=== PATIENT | female | born 2000 | race Caucasian/White ===

== ENCOUNTER 2024-09-17 10:54 | Emergency (ER) | payer OTHER, SELFPAY ==
[2024-09-17 11:12] VITALS: BP 115/68; PULSE 82; RESP 18; TEMP 36.9; O2SAT 100; BMI 26.2
--- NOTE | 2024-09-17 11:18 | ED_ITS ---
HPI - Back Pain/Injury General Chief Complaint: Back Pain/Injury Stated Complaint: Back pain 2 days Time Seen by Provider: 09/17/24 11:17 Source: patient Mode of arrival: ambulatory Limitations: no limitations History of Present Illness ED Provider: BRANDI JASMINE Narrative: 24 yo female with PMH of kidney infection who notes left low back pain that comes and goes then releases since Monday no trauma, no dysuria, had a temp of 98.8 and felt a little nauseated yesterday. The pain does get worse with touching the back. She has no dysuria, no vomiting, no diarrhea. No numbness, weakness, incontinence reported MD elicited complaint: back pain Onset (ago): day(s) (3) Timing: intermittent Severity: moderate Similar Symptoms Previously: No Quality: spasming Location: lumbar spine Radiation: none Exacerbating factors: none Relieving factors: none Associated symptoms: denies other symptoms Related Data Previous Rx's ?Medication ?Instructions ?Recorded cyclobenzaprine 10 mg tablet 10 mg PO TID PRN muscle spasm #20 09/17/24 tabs lidocaine 5 % topical patch 1 patch topical DAILY #30 ea 09/17/24 Allergies Allergy/AdvReac Type Severity Reaction Status Date / Time No Known Allergies Allergy Verified 09/17/24 11:14 Review of Systems 2 Review of Systems: Constitutional : No Weight loss, No Fever, No Chills, ENT/Mouth : No Hearing loss, No Ear Pain, No Nasal Congestion, No Sinus Pain, No Hoarseness, No sore throat, No Rhinorrhea, No Swallowing Difficulty Cardiovascular : No Chest Pain, No SOB Respiratory : No Cough, No Dyspnea Gastrointestinal : No Nausea, No Vomiting, No Diarrhea, No abdominal Pain, No Hematochezia, No Melena Genitourinary : No Dysuria, No Urinary Frequency, No Hematuria, No Urinary Incontinence, Musculoskeletal : positive back pain Skin : No Skin Lesions, No rash Neuro : No Weakness, No Numbness, No Paresthesias, no loss of bowel or bladder incontinence, no saddle anesthesia all other systems reviewed and are negative [facility] Past Medical History Attestation statement: The following information was validated with the patient. Source: old records reviewed Medical History Kidney infection Social History Social History Smoked in Last 30 Days: No Use of substances other than those prescribed or required for medical reasons: No Advance Directives: No Advance Directives Information Provided: Yes Do you have a plan to hurt others: No Plan Patient : No Physical Exam 2 Vital Signs: Vital Signs: Last Vital Signs Temp 98.2 F 09/17/24 17:03 Pulse 87 09/17/24 17:03 Resp 18 09/17/24 17:03 BP 123/71 09/17/24 17:03 Pulse Ox 100 09/17/24 17:03 O2 Del Method Room Air 09/17/24 17:03 BMI result Body Mass Index 26.2 Appearance: Alert. Oriented X3. No acute distress. Eyes: Pupils equal, round and reactive to light. ENT: Pharynx normal. Neck: Normal inspection. Neck supple. CVS: Normal heart rate and rhythm. Pulses normal. Respiratory: No respiratory distress. Breath sounds normal. Abdomen: Soft and nontender. Back: ttp along PSIS area no CVA ttp Skin: Skin warm and dry. Normal skin color. Normal skin turgor. Extremities: No lower extremity edema. No calf ttp Neuro: Oriented X 3. No motor deficit. No sensory deficit. Course Course Course Narrative: This is a rapid medical exam performed by Lina Shepherd PA-C. 24-year-old female with a history of pyelonephritis presents with left flank pain x 2 days. Associated fever and nausea. She is overall well in appearance, without CVA tenderness, I am not inclined to obtain a CT scan at this time. We will be obtaining screening labs urinalysis and urine . The patient is hemodynamically stable and is able to return to the weight room pending results. Medical Decision Making Medical Decision Making MDM Narrative: 24 yo female hx of kidney infection now reports left lower PSIS pain no or GI symptoms did have mild nausea yesterday. I can touch the low back and she has pain. She has no neuro symptoms at this time basic labs, UA is likely contaminated culture ordered. PO pain control, after discussion patient does not want to wait for US of kidneys and I agree Differential Diagnosis Differential Diagnoses: The differential diagnosis associated with the presentation includes back strain, low susp renal colic Lab Data [facility] Lab Attestation statement: I reviewed the patient's lab results. 09/17/24 11:31 09/17/24 11:31 Labs: Lab Results 09/17/24 09/17/24 Range/Units 11:31 16:41 WBC 6.8 (4.8-10.8) X10*3/uL RBC 5.17 (4.20-5.50) X10*6/uL Hgb 13.9 (12.0-16.0) g/dl Hct 42.7 (37.0-47.0) % MCV 82.6 (80.0-98.0) fL MCH 26.9 L (27.0-33.0) pg MCHC 32.6 (31.0-35.0) g/dl RDW 13.3 (11.0-16.0) % Plt Count 212 (160-400) X10*3/uL MPV 8.7 L (9.4-12.3) fL Immature Gran % (Auto) 0.3 (0.0-0.4) % Neut % (Auto) 59.0 (45-73) % Lymph % (Auto) 32.9 (20-40) % [place] % (Auto) 5.8 (2-11) % Eos % (Auto) 1.6 (0-4) % Baso % (Auto) 0.4 (0-2) % Lymph # (Auto) 2.2 (1.2-4.9) X10*3/uL [place] # (Auto) 0.4 (0.1-1.2) X10*3/uL Eos # (Auto) 0.1 (0.0-0.4) X10*3/uL Baso # (Auto) 0.0 (0.0-0.2) X10*3/uL Abs Immat Gran (auto) 0.02 (0.00-0.03) X10*3/uL Absolute Neuts (auto) 4.0 (2.0-8.3) x10*3/uL Absolute Nucleated RBC 0.000 (0.0-0.012) X10*3/uL Nucleated RBC % (auto) 0.0 (0.0-0.2) /100WBC Sodium 141 (135-145) mmol/L Potassium 4.9 (3.3-5.1) mmol/L Chloride 108 (96-108) mmol/L Carbon Dioxide 27 (22-29) mmol/L Anion Gap 11 L (12-20) BUN 14 (9-16) mg/dL Creatinine 0.87 (0.5-1.4) mg/dL Estim Creat Clear Calc 88.9 Estimated GFR > 60 Random Glucose 117 H (60-115) mg/dL Calcium 9.8 (8.4-10.2) mg/dL Magnesium 2.2 (1.6-2.6) mg/dL Total Bilirubin 0.4 (0.0-1.0) mg/dL AST 19 (5-31) U/L ALT 16 (0-31) U/L Alkaline Phosphatase 60 (39-117) U/L Total Protein 8.0 (6.5-8.0) g/dL Albumin 4.6 (3.5-5.0) g/dL Beta HCG, Quant < 2 mIU/mL Urine Color Yellow Urine Appearance Clear Urine pH 6.0 (5.0-9.0) Ur Specific [place] <= 1.005 (1.005-1.025) Urine Protein Negative (Neg-Trace) mg/dL Urine Glucose (UA) Negative (Negative) mg/dL Urine Ketones 15 (Negative) mg/dL Urine Blood Negative (Negative) Urine Nitrite Negative (Negative) Ur Leukocyte Esterase Trace H (Negative) Urine RBC 0-2 (0-2) /HPF Urine WBC 6-10 H (0-5) /HPF Ur Squamous Epith Cells 3-5 (0-2) /HPF Urine Bacteria None Seen (None Seen) Hyaline Casts 0-2 (0-2) /LPF External Record Review External record reviewed: Outpatient record Prescription Management I considered prescription management with: Pain Medication and Other Discharge Plan Discharge Clinical Impression: Acute lumbar back pain Qualifiers: Back pain laterality: left Sciatica presence: without sciatica Qualified Code(s): M54.50 - Low back pain, unspecified Patient Disposition: Home, Self-Care Instructions: Acute Low Back Pain (ED) Additional Instructions: return for any worsening pain to get Ultrasound. stay hydrated and rest monitor for recurrent fevers, vomiting or any other concerns. Prescriptions: New cyclobenzaprine 10 mg tablet 10 mg PO TID PRN (Reason: muscle spasm) Qty: 20 0RF lidocaine 5 % adhesive patch,medicated 1 patch topical DAILY Qty: 30 0RF Rx Instructions: leave on most painful area for up to 12 hrs Print Language: Mongolian
[2024-09-17 11:38] LABS: MANUAL DIFF FLAG NO
[2024-09-17 11:40] LABS: Basophils Percent Auto 0.4 % (0-2); Eosinophils Absolute Auto 0.1 X10*3/uL (0.0-0.4); Eosinophils Percent Auto 1.6 % (0-4); Hematocrit 42.7 % (37.0-47.0); Hemoglobin 13.9 g/dl (12.0-16.0); Imm Gran Abs Auto 0.02 X10*3/uL (0.00-0.03); Imm Gran Pct Auto 0.3 % (0.0-0.4); Lymphocytes Absolute Auto 2.2 X10*3/uL (1.2-4.9); Lymphocytes Percent Auto 32.9 % (20-40); Mean Corpuscular HGB Conc 32.6 g/dl (31.0-35.0); Mean Corpuscular Hemoglobin 26.9 pg (27.0-33.0); Mean Corpuscular Volume 82.6 fL (80.0-98.0); Mean Platelet Volume 8.7 fL (9.4-12.3); Monocytes Absolute Auto 0.4 X10*3/uL (0.1-1.2); Monocytes Percent Auto 5.8 % (2-11); Platelet Count 212 X10*3/uL (160-400); Red Blood Count 5.17 X10*6/uL (4.20-5.50); Red Cell Distribution Width 13.3 % (11.0-16.0); White Blood Count 6.8 X10*3/uL (4.8-10.8)
[2024-09-17 12:01] LABS: Alanine Aminotransferase 16 U/L (0-31); Albumin Level 4.6 g/dL (3.5-5.0); Alkaline Phosphatase 60 U/L (39-117); Anion Gap 11 (12-20); Aspartate Amino Transferase 19 U/L (5-31); Bilirubin Total 0.4 mg/dL (0.0-1.0); Blood Urea Nitrogen 14 mg/dL (9-16); Calcium 9.8 mg/dL (8.4-10.2); Carbon Dioxide 27 mmol/L (22-29); Chloride 108 mmol/L (96-108); Creatinine Clr Calc Pharmacy 88.9; Estimated Glomerular Filt Rate > 60; Glucose Random 117 mg/dL (60-115); Magnesium 2.2 mg/dL (1.6-2.6); Potassium 4.9 mmol/L (3.3-5.1); Sodium 141 mmol/L (135-145)
[2024-09-17 12:05] LABS: HCG Quantitative < 2 mIU/mL
[2024-09-17 16:43] VITALS: BP 114/70; PULSE 89; RESP 16; TEMP 36.8; O2SAT 100
[2024-09-17 16:51] LABS: Appearance Urine Clear; Color Urine Yellow; Glucose Urine UA Negative (Negative); Leukocyte Esterase Urine Trace (Negative); Nitrite Urine Negative (Negative); Specific Gravity - Urine <= 1.005 (1.005-1.025); UMIC TRIGGER UACC YES; Urine Blood Negative (Negative); Urine Ketones 15 mg/dL (Negative); Urine Protein Negative (Neg-Trace)
[2024-09-17 16:56] LABS: Bacteria Urine None Seen (None Seen); Hyaline Casts Urine 0-2 /LPF (0-2); RBC Urine 0-2 /HPF (0-2); UACC Culture Trigger YES
[2024-09-17 17:03] VITALS: BP 123/71; PULSE 87; RESP 18; TEMP 36.8; O2SAT 100
--- NOTE | 2024-09-17 17:34 | PC.NURSE ---
pt a&ox3, vss, pt c/o 02/22 lower back pain, pt seen by provider will discharge
[2024-09-17 17:40] VITALS: BP 123/71; PULSE 87; RESP 18; TEMP 36.8; O2SAT 100
== END 2024-09-17 17:42 | disposition home or self-care (01) ==
PROVIDERS: Physician Assistant Medical; Emergency Provider Emergency Medicine
DX: M54.50 Low back pain, unspecified (principal); Z79.899 Other long term (current) drug therapy
CPT/HCPCS: 36415; 80053; 81001; 83735; 84702; 85025; 87086; 99283; 99284